=== PATIENT | female | born 1995 | race Caucasian/White ===

== ENCOUNTER 2017-10-11 06:12 | Inpatient (IN) ==
[2017-10-11] MEDS ORDERED: MEROPENEM 1,000 MG in SODIUM CHLORIDE 0.9% 100 ML IV STA (06:31)
[2017-10-11] MEDS ORDERED: ALBUTEROL 2.5 MG/3 ML NEB RESP TX STA (06:43)
[2017-10-11] MEDS ORDERED: methylPREDNISolone SOD SUC 125 MG/2 ML VIAL IV STA (06:43)
[2017-10-11 06:46] LABS: Basophils % 0.5 % (0.0-0.8); Eosinophils % 0.2 % (0.00-10.9); Hematocrit 41.2 VOL% (35.7-47.0); Hemoglobin 13.3 GM/DL (12.0-16.0); Immature Granulocytes % 0.2 %; Immature Granulocytes Absolute 0.01 #; Lymphocytes # 2.5 10*3/uL (1.4-4.0); Lymphocytes % 43.8 % (21.3-54.2); Mean Corpuscular HGB Conc 32.3 GM/DL (32-36); Mean Corpuscular Hemoglobin 28 PG (27-34); Mean Corpuscular Volume 87.5 FL (87-102); Mean Platelet Volume 10.6 FL (9.6-12.0); Monocytes # 0.7 10*3/uL (0.11-0.8); Monocytes % 12.8 % (1.7-12.7); Neutrophils # 2.4 10*3/uL (1.4-7.4); Neutrophils % 42.5 % (38.7-73.9); Platelet Count 322 T/CUMM (130-400); Red Blood Count 4.71 MC/CUMM (3.8-5.5); Red Cell Distribution Width 13.4 % (9.3-17.3); White Blood Count 5.6 T/CUMM (4-12)
[2017-10-11] MEDS ORDERED: MEROPENEM 1,000 MG VIAL IV ONE (06:59)
[2017-10-11 07:09] LABS: Calcium 8.7 MG/DL (8.5-10.1); Osmolality,Calculated 273.5 MOS/KG (273-304); Potassium 3.4 MMOL/L (3.5-5.1)
[2017-10-11] MEDS ORDERED: ONDANSETRON 4 MG/2 ML VIAL IV PRN (08:57)
[2017-10-11] MEDS ORDERED: DOCUSATE SODIUM 100 MG CAPSULE PO PRN (08:57)
[2017-10-11] MEDS ORDERED: BISACODYL 5 MG TABLET PO PRN (08:57)
[2017-10-11] MEDS ORDERED: LEVOFLOXACIN INJ 750 MG in PREMIX 1 EACH IV SCH (09:00)
[2017-10-11] MEDS ORDERED: LEVOFLOXACIN INJ 150 ML IV ONE (12:38)
[2017-10-11] MEDS: SODIUM CHLORIDE 0.45% 1,000 ML IV SCH ×2 (12:49→21:36)
[2017-10-11] MEDS: MEROPENEM 1,000 MG in SYRINGE 1 EACH IV SCH (15:31)
[2017-10-11] MEDS: methylPREDNISolone SOD SUC 125 MG/2 ML VIAL IV SCH ×2 (15:38→16:34)
[2017-10-11] MEDS: AZITHROMYCIN INJ 500 MG in SODIUM CHLORIDE 0.9% 250 ML IV SCH (17:01)
[2017-10-11] MEDS: IBUPROFEN 600 MG TABLET PO PRN (20:20)
[2017-10-11] MEDS: ENOXAPARIN 40 MG/0.4 ML SYRINGE SUBCUT SCH (20:25)
[2017-10-12] MEDS: MEROPENEM 1,000 MG in SYRINGE 1 EACH IV SCH ×4 (00:31→23:53)
[2017-10-12] MEDS: ALBUTEROL 2.5 MG/3 ML NEB RESP TX PRN ×2 (04:40→14:21)
[2017-10-12] MEDS: SODIUM CHLORIDE 0.45% 1,000 ML IV SCH (04:44)
[2017-10-12 06:53] LABS: Basophils % 0.4 % (0.0-0.8); Eosinophils % 0.2 % (0.00-10.9); Hematocrit 35.1 VOL% (35.7-47.0); Hemoglobin 11.4 GM/DL (12.0-16.0); Immature Granulocytes % 0.2 %; Immature Granulocytes Absolute 0.01 #; Lymphocytes # 2.4 10*3/uL (1.4-4.0); Lymphocytes % 51.5 % (21.3-54.2); Mean Corpuscular HGB Conc 32.5 GM/DL (32-36); Mean Corpuscular Hemoglobin 28 PG (27-34); Mean Corpuscular Volume 87.1 FL (87-102); Mean Platelet Volume 10.6 FL (9.6-12.0); Monocytes # 0.5 10*3/uL (0.11-0.8); Monocytes % 10.5 % (1.7-12.7); Neutrophils # 1.8 10*3/uL (1.4-7.4); Neutrophils % 37.2 % (38.7-73.9); Platelet Count 296 T/CUMM (130-400); Red Blood Count 4.03 MC/CUMM (3.8-5.5); Red Cell Distribution Width 13.5 % (9.3-17.3); White Blood Count 4.7 T/CUMM (4-12)
[2017-10-12 07:06] LABS: Osmolality,Calculated 279.1 MOS/KG (273-304)
[2017-10-12 08:32] LABS: Band Neutrophils 1 % (0-10); Giant Platelets Few; Hypochromasia 1+; Lymphocytes 54 % (20-55); Ovalocytes Slight; Platelet Estimate Adequate; Segmented Neutrophils 36 % (50-85); Total Cells Counted 100
[2017-10-12] MEDS: ACETAMINOPHEN 325 MG TABLET PO PRN ×2 (09:13→14:15)
[2017-10-12] MEDS: POTASSIUM CHLORIDE 20 MEQ TABLET PO SCH ×2 (09:21→14:15)
[2017-10-12] MEDS: AZITHROMYCIN INJ 500 MG in SODIUM CHLORIDE 0.9% 250 ML IV SCH (14:16)
[2017-10-12] MEDS ORDERED: LEVALBUTEROL 0.63 MG/3 ML NEB RESP TX PRN (18:04)
[2017-10-12] MEDS: ENOXAPARIN 40 MG/0.4 ML SYRINGE SUBCUT SCH (21:12)
[2017-10-12] MEDS: IBUPROFEN 600 MG TABLET PO PRN (23:52)
[2017-10-13] MEDS: IBUPROFEN 600 MG TABLET PO PRN (08:55)
[2017-10-13] MEDS: MEROPENEM 1,000 MG in SYRINGE 1 EACH IV SCH (08:56)
[2017-10-13] MEDS: SODIUM CHLORIDE 0.45% 1,000 ML IV SCH (08:58)
[2017-10-13 11:51] VITALS: BP 144/74
== END 2017-10-13 11:57 | disposition home or self-care (01) | DRG 195 ==
LOC: N.ED 06:12 → N.EDINP 08:30 → N.5E 14:07
PROVIDERS: ADMIT Internal Medicine; ATTEND Internal Medicine